=== PATIENT | female | born 1945 | race Caucasian/White ===

== ENCOUNTER → 2020-10-24 | Outpatient (CLI) | payer OTHER | LOC: M.MRI 08:30 | PROVIDERS: ATTEND Orthopaedic Surgery | DX: S83.242A Other tear of medial meniscus, current injury, left knee, initial encounter (principal); M71.22 Synovial cyst of popliteal space [Baker], left knee; M25.462 Effusion, left knee; M17.12 Unilateral primary osteoarthritis, left knee; X58.XXXA Exposure to other specified factors, initial encounter; Y93.89 Activity, other specified; Y92.89 Other specified places as the place of occurrence of the external cause; Y99.8 Other external cause status ==

== ENCOUNTER → 2020-11-09 | Outpatient (CLI) | payer OTHER ==
[~2020-11-09] MED LIST: ACYCLOVIR 400400 MG PO; CALCIUM500 MG PO; DRIZALMA SPRINK60 MG PO; LEVO-T75 MCG PO; SULFAMETHOXAZOLE PO; TRIMETHOPRIM PO; [UNRECOGNIZED DRUG - OTHER]
[2020-11-09 10:29] LABS: HEMATOCRIT 39.1 % (37.0-47.0); HEMOGLOBIN 12.6 gm/dL (12.0-15.0); MCH 28.1 pg (26.0-34.0); MCHC 32.3 g/dL (28.0-37.0); MCV 86.8 fL (80.0-100.0); RDW-CV 13.4 % (10.5-14.5); WBC 3.4 thou/uL (4.0-11.0)
[2020-11-09 10:30] LABS: ABSOLUTE EOSINOPHILS 0.1 thou/uL (0.0-0.7); ABSOLUTE LYMPHOCYTES 0.4 thou/uL (0.8-5.3); ABSOLUTE MONOCYTES 0.5 thou/uL (0.0-1.2); ABSOLUTE NEUTROPHILS 2.3 thou/uL (1.6-8.1); BASOPHILS 1.3 %; EOSINOPHILS 3.5 %; LYMPHOCYTES 12.8 %; MONOCYTES 13.4 %; NUCLEATED RBCS 0 /100WBC; PLATELET COUNT* 176 thou/uL (150-400)
[2020-11-09 10:32] LABS: URINE BILIRUBIN NEGATIVE (Negative); URINE BLOOD NEGATIVE (Negative); URINE CLARITY CLEAR; URINE COLOR YELLOW; URINE GLUCOSE-RANDOM NEGATIVE (Negative); URINE KETONES NEGATIVE (Negative); URINE NITRITE-REFLEX NEGATIVE (Negative); URINE PROTEIN NEGATIVE (Negative); URINE UROBILINOGEN 0.2 E.U./dl (0.2-1.0)
[2020-11-09 10:35] LABS: PROTIME 10.3 Seconds (9.20-11.50)
[2020-11-09 10:38] LABS: ALBUMIN 3.7 g/dL (3.4-5.0); CREATININE 0.8 mg/dL (0.6-1.3); POTASSIUM 4.1 mmol/L (3.5-5.1); TOTAL BILIRUBIN 0.5 mg/dL (<0.1-1.0)
[2020-11-09 10:50] LABS: URINE LEUKOCYTES-REFLEX 3+ (Negative)
[2020-11-09 11:01] LABS: BACTERIA-REFLEX 1-9 Few /HPF (None Seen); CASTS None Seen /LPF (None Seen); CRYSTALS None Seen /LPF (None Seen); MUCUS None Seen strn/LPF (None Seen); RENAL EPITHELIAL CELLS >10 Many /LPF (None Seen); SQUAMOUS 0-3 Few /LPF (0-3); URINE RBC 0-2 Rare /HPF (0-2)
--- NOTE | 2020-11-09 11:18 | EKG ---
[place] [address] ELECTROCARDIOGRAM REPORT Name: REBECCA RILEY Room: [facility]#: [id number] Admission: 11/09/20 Attend Phys: Piotr Becerril, Discharge: Date of : 47 Date of Service: 11/09/20 1011 Report #: [id number] THIS REPORT FOR: //name// [facility] Test Date: 2020-11-09 Test Time: 10:11:39 Pat Name: REBECCA RILEY Department: Room: Gender: F Construction Safety Manager: ALC : 1945 Requested By: Piotr Becerril Order Number: [id number] Dilan MD: Valeriy Edwards Measurements Intervals [place] Rate: 70 P: 34 KS: 157 QRS: 24 QRSD: 90 T: 55 QT: 391 QTc: 422 Interpretive Statements Sinus rhythm LVH with secondary repolarization abnormality Anterior Q waves, possibly due to LVH No previous ECG available for comparison Electronically Signed On 11-09-2020 11:17:56 CDT by Valeriy Edwards [email or web address] <ELECTRONICALLY SIGNED> By: Valeriy Edwards MD, [facility] 11/09/20 1117 1011 1011 Valeriy Edwards MD, [facility] /EPI
== END ==
LOC: M.LAB 09:19
PROVIDERS: ATTEND Orthopaedic Surgery
DX: Z01.812 Encounter for preprocedural laboratory examination (principal); M17.12 Unilateral primary osteoarthritis, left knee

== ENCOUNTER 2020-11-15 06:49 | Observation (INO) | payer OTHER ==
[~2020-11-15] VITALS: Ht 162.6 cm; Wt 70.3 kg
[2020-11-15 20:00] VITALS: BP 152/95
--- NOTE | 2020-11-15 22:32 | NUR ---
Assumed care of pt at 1900, pt resting in bed. States pain is under control at this time. Lucag D/I. Hemovac compressed. Pt voided per BSC, with nurse assist, toll well getting up.
[2020-11-16] VITALS (7 sets, daily range): BP systolic 129–148; BP diastolic 53–73
--- NOTE | 2020-11-16 01:02 | NUR ---
Pt transferred by bed with all belongings to room 208 at 0030, report given to Suzette PATRICK
[2020-11-16 04:58] LABS: HEMATOCRIT 31.1 % (37.0-47.0); HEMOGLOBIN 10.6 gm/dL (12.0-15.0); MCH 29.2 pg (26.0-34.0); MCHC 34.2 g/dL (28.0-37.0); MCV 85.5 fL (80.0-100.0); MPV 8.8 fl. (7.2-11.1); NUCLEATED RBCS 0 /100WBC; PLATELET COUNT* 160 thou/uL (150-400); RBC 3.64 mil/uL (4.20-5.00); RDW-CV 13.4 % (10.5-14.5); WBC 6.2 thou/uL (4.0-11.0)
--- NOTE | 2020-11-16 05:24 | NUR ---
PT ARRIVED 0030 ON FLOOR, ALERT AND ORIENTED, D5 1/2 NS AT 100 RUNNING WITH ANCEF. PAIN RATED 4/10, TYLENOL GIVEN. SHE HAS POLAR PACK, KIANA HOSE, SCD'S IN PLACE. URINATED SEVERAL TIMES USING BEDSIDE COMMODE. DRESSING SITE INTACT. RECEIVED ALL MEDS/FLUIDS SCHEDULED.
[2020-11-16 06:08] LABS: ABSOLUTE LYMPHOCYTES 0.4 thou/uL (0.8-5.3); ABSOLUTE MONOCYTES 0.5 thou/uL (0.0-1.2); ABSOLUTE NEUTROPHILS 5.3 thou/uL (1.6-8.1); ANISOCYTOSIS 1+; PLATELET ESTIMATE ADEQUATE; POIKILOCYTOSIS 1+
[2020-11-16] MEDS ORDERED: COLACE100 MG PO (09:23)
--- NOTE | 2020-11-16 15:04 | NUR ---
Pt is A&O. Resides at home alone. Independent. Pt has a walker that she can use. Pt discharging home today with [facility] post Left Knee OA, family to assist as needed. Faxed HH referral.
--- NOTE | 2020-11-16 16:33 | NUR ---
Reviewed discharge teaching with patient (cate Newton RN). IV dc'd. Pt discharged with CPM per WC accompanied by daughter.
--- NOTE | 2020-11-16 22:00 | OP ---
[address] [address] OPERATIVE REPORT Name: REBECCA RILEY Room: [address] Minor Mathias#: [id number] Admission: 11/15/20 Attend Phys: Kolton Wilburn Discharge: 11/16/20 Date of : 47 Report #: [id number] THIS REPORT FOR: cc: Radha Mahmood Anna S. DO Greiner, Robert F. II DO ~ DATE OF SURGERY: 11/15/2020 PREOPERATIVE DIAGNOSIS: Left knee osteoarthritis. POSTOPERATIVE DIAGNOSIS: Left knee osteoarthritis. PROCEDURE: Left total knee arthroplasty. SURGEON: Piotr Becerril II, DO DATA ENTRY MACHINE OPERATOR: Brayden Regan ANESTHESIA: General endotracheal. ESTIMATED BLOOD LOSS: 50 mL. ANTIBIOTICS: Ancef preoperatively. DRAINS: Medium Hemovac. COMPLICATIONS: None. CONDITION OF THE PATIENT: Stable to recovery room. IMPLANTS: Listed in operative record and progress note. BRIEF HISTORY: The patient seen in the preoperative area. Preoperative H and P was performed. Site was marked, questions were answered. Risks and benefits were discussed with the patient in detail about surgery. The patient wished to proceed assuming all risks. DESCRIPTION OF PROCEDURE: The patient was taken to the operative suite, placed supine on the operating table, given appropriate anesthesia. A well-padded tourniquet applied to the upper thigh, which was inflated to 300 mmHg after gravity exsanguination. The operative knee was sterilely prepped and draped. Surgery began by midline incision. This was carried down to subcutaneous tissues. A medial parapatellar arthrotomy was performed, carried down to bone. Patella was then everted and excess soft tissue removed from the femur. Femoral cutting block was then applied, checked with a drop marciano for rotational alignment, pinned in appropriate position and appropriate [place] [address] OPERATIVE REPORT Name: OSVALDOREBECCA Jarrell Room: [address] Minor Mathias#: [id number] Admission: 11/15/20 Attend Phys: Kolton Wilburn Discharge: 11/16/20 Date of : 47 Report #: [id number] 4-in-1 cutting block was then applied, checked for rotational alignment, pinned in appropriate position and appropriate cuts were made. The tibia was then exposed. Excess meniscus was removed. Retractor was placed on collateral ligaments. Tibial cutting block was then applied, pinned in appropriate position, checked with a drop marciano for rotational alignment and slope and appropriate cut was made. Tibial bone was removed. Tibial baseplate was then applied, checked for rotational alignment with the drop marciano and pinned in appropriate position. Femur was then applied and box cut was reamed. This was then trialed with appropriate spacer, which showed excellent fit and fill and excellent stability of knee through all range of motion. The patella was then reamed in appropriate fashion, sized to appropriate size. Three peg holes were drilled, it was then trialed, it showed excellent flexion and extension, excellent tracking of the patella within the groove. These trials were then removed. The tibia was punched in appropriate fashion. Bone ends were cleansed with Pulsavac irrigation and cement was mixed and applied to the final implants. These were then malleted into position, held the knee in extension and compressed to allow cement to cure. After it cured, excess was removed using Avilla and osteotome. Wound was then copiously irrigated and the final spacer was then malleted into position. The tourniquet was deflated. Hemostasis was obtained with electrocautery. Pain cocktail was injected. Medium Hemovac drain was applied. The capsule was closed with #2 FiberWire and #1 Vicryl in [id number]-[id number] fashion. Skin was closed with 2-0 Vicryl, running 3-0 Monocryl and Dermabond. Sterile dressing applied. Chester wrap and PolarCare applied. The patient transported to recovery room in stable condition. Counts were correct throughout the procedure. <ELECTRONICALLY SIGNED> By: Piotr Becerril II, DO 11/16/202199 07 32Piotr Becerril II, DO /nt
== END 2020-11-16 16:40 | disposition home or self-care (01) ==
LOC: M.ORTHSURG → M.2W 08:45 → M.TBA 08:45 → M.ORTHSURG 11:21 → M.TBA 11:26 → M.ORTHSURG 15:59 → M.2W 11-16 00:36
PROVIDERS: Orthopaedic Surgery; ADMIT Internal Medicine; ATTEND Internal Medicine
DX: M17.12 Unilateral primary osteoarthritis, left knee (principal); Z20.822 Contact with and (suspected) exposure to COVID-19; C85.90 Non-Hodgkin lymphoma, unspecified, unspecified site; Z85.3 Personal history of malignant neoplasm of breast; Z79.899 Other long term (current) drug therapy